=== PATIENT | male | born 1980 | race Caucasian/White ===

== ENCOUNTER 2018-04-24 10:53 | Emergency (ER) | payer SELFPAY ==
[2018-04-24] MEDS: LORAZEPAM 2 MG INJ IM ×2 (11:21→12:36)
[2018-04-24] MEDS ORDERED: HALOPERIDOL 5 MG INJ (12:33)
[2018-04-24] MEDS: HALOPERIDOL 5 MG INJ IM (12:36)
[2018-04-24] MEDS: LORAZEPAM 1 MG TAB PO (19:05)
== END 2018-04-25 10:36 ==
LOC: E/R 10:53
DX: F15.10 Other stimulant abuse, uncomplicated (principal); R40.2142 Coma scale, eyes open, spontaneous, at arrival to emergency department; R40.2362 Coma scale, best motor response, obeys commands, at arrival to emergency department
CPT/HCPCS: 96372; 99284-25